=== PATIENT | female | born 1945 | race Caucasian/White ===

== ENCOUNTER 2020-10-04 13:52 | Outpatient (REF) | payer SELFPAY | END 2020-10-04 13:53 | disposition home or self-care (01) | LOC: HO.HAP 13:52 | PROVIDERS: PCP Nurse Practitioner Family; Referring Provider Nurse Practitioner Family; Visit Provider Nurse Practitioner Family | DX: Z46.1 Encounter for fitting and adjustment of hearing aid (principal) | CPT/HCPCS: V5267 ==

== ENCOUNTER 2020-10-24 13:51 | Outpatient (REF) | payer MEDICARE, SELFPAY | END 2020-10-24 13:52 | disposition home or self-care (01) | LOC: HO.LAB 13:51 | PROVIDERS: Visit Provider Internal Medicine | DX: Z20.828 Contact with and (suspected) exposure to other viral communicable diseases (principal) | CPT/HCPCS: C9803; U0003 ==

== ENCOUNTER 2020-11-25 13:11 | Outpatient (REF) | payer SELFPAY | END 2020-11-25 13:12 | disposition home or self-care (01) | LOC: HO.HAP 13:11 | PROVIDERS: Visit Provider Nurse Practitioner Family | DX: Z13.89 Encounter for screening for other disorder (principal) ==

== ENCOUNTER 2021-01-07 09:42 | Outpatient (REF) | payer SELFPAY | END 2021-01-07 09:43 | disposition home or self-care (01) | LOC: HO.HAP 09:42 | PROVIDERS: Visit Provider Nurse Practitioner Family | DX: Z46.1 Encounter for fitting and adjustment of hearing aid (principal) | CPT/HCPCS: V5014 ==

== ENCOUNTER 2021-02-07 10:42 | Outpatient (REF) | payer MEDICARE, SELFPAY ==
--- NOTE | 2021-02-07 15:12 | MHC.AU.AHA ---
Adult Audiological Evaluation Date of Visit: 02/07/21 Reason for Appointment: History of hearing loss. Patient arrives to determine if there has been a change in hearing. Previous Hearing Test Results: At this clinic on 10/03/2019- Overall Moderately-severe/severe sensorineural hearing loss bilaterally Medical History: Medical History: High Blood Pressure, Thyroid Disease Hearing Instrument History- Right Ear: Metallurgical Engineer: Phonak Model: [id number] V70-312 Serial Number: [id number] Battery Size: 312 Repair Warranty: 09/14/19-LAST EXTENTION ON ORIGINAL WARRANTY Dispensed By: [facility] Date of Fittin08/27/2015 Hearing Instrument History- Left Ear: Metallurgical Engineer: Phonak Model: [id number] V70-312 Serial Number: [id number] Battery Size: 312 Warranty: 09/14/19 LAST EXTENTION ORIGINAL WARRANTY Dispensed By: [facility] Date of Fittin08/27/2015 Otoscopy: Right Ear: Unremarkable Left Ear: Unremarkable Tympanometry: Tympanometry performed due to: To assess integrity of the middle ear system Right Ear: Normal Middle Ear System (Type A) Left Ear: Normal Middle Ear System (Type A) Hearing Evaluation: Transducer(s) Used: Insert Earphones Method: Conventional Audiometry Stimuli Used: Pure Tones Right Ear: Description of Hearing: Moderately-severe to severe sensorineural hearing loss Left Ear: Description of Hearing: Moderately-severe to severe sensorineural hearing loss Speech Recognition Threshold (SRT): Method Used: Recorded Lists Stimuli Used: Spondee Words Right Ear: 75 dBHL Left Ear: 70 dBHL Word Discrimination: Method: Recorded Lists Word Lists Used: NU-6 Right Ear: 84% at 95 dBHL Left Ear: 84% at 90 dBHL Most Comfortable Level (MCL): Right Ear: 95 dBHL Left Ear: 90 dBHL Comparison: Compared to most recent evaluation: Thresholds have decreased slightly at 2000 and 4000 Hz bilaterally Recommendations: Audiological re-evaluation in one year. Hearing aid maintenance performed today. Hearing aid(s) reprogrammed with updated test results. Diagnosis: Primary Diagnosis: H90.3 Bilateral Sensorineural Hearing Loss Services Performed: Comprehensive Audiological Evaluation (CPT 04629), Tympanometry (CPT 62952) Signature: Provider: Manoj Hendrickson, [facility]
== END 2021-02-07 10:43 | disposition home or self-care (01) ==
LOC: HO.SH 10:42
PROVIDERS: Visit Provider Nurse Practitioner Family
DX: H90.3 Sensorineural hearing loss, bilateral (principal)
CPT/HCPCS: 92557; 92567

== ENCOUNTER 2022-03-02 12:37 | Outpatient (REF) | payer MEDICARE, SELFPAY ==
--- NOTE | 2022-03-11 12:49 | MHC.AU.AHA ---
Adult Audiological Evaluation Date of Visit: 03/02/22 Reason for Appointment: Long-standing history of hearing loss. Patient arrives to determine if there has been a change in hearing. She feels she has not been hearing as well out of her right ear. Previous Hearing Test Results: At this clinic on 02/07/2021- Moderately-severe to severe sensorineural hearing loss bilaterally Medical History: Medical History: High Blood Pressure, Thyroid Disease Hearing Instrument History- Right Ear: Swedish Masseuse: Phonak Model: VIRTO V70-312 Serial Number: [id number] Battery Size: 312 Repair Warranty: 09/14/2019 Dispensed By: [facility] Date of Fittin08/27/2015 Hearing Instrument History- Left Ear: Swedish Masseuse: Phonak Model: VIRTO V70-312 Serial Number: [id number] Battery Size: 312 Warranty: 09/14/2019 Dispensed By: [facility] Date of Fittin08/27/2015 Otoscopy: Right Ear: Occluded by a thin layer of wax/skin- was removed without incident Left Ear: Unremarkable Hearing Evaluation: Transducer(s) Used: Insert Earphones Method: Conventional Audiometry Stimuli Used: Pure Tones Right Ear: Description of Hearing: Moderately-severe to severe sensorineural hearing loss Left Ear: Description of Hearing: Moderately-severe to severe sensorineural hearing loss Speech Recognition Threshold (SRT): Method Used: Recorded Lists Stimuli Used: Spondee Words Right Ear: 65 dBHL Left Ear: 65 dBHL Word Discrimination: Method: Recorded Lists Word Lists Used: W-22 Right Ear: 56% at 95 dBHL Left Ear: 76% at 90 dBHL Most Comfortable Level (MCL): Right Ear: 95 dBHL Left Ear: 90 dBHL Comparison: Compared to most recent evaluation: Slight decrease in thresholds bilaterally Recommendations: Audiological re-evaluation in one year. Hearing aid maintenance performed today. Hearing aid(s) reprogrammed with updated test results. Use of wax softening drops such as EarWaxMD or Debrox is recommended. Diagnosis: Primary Diagnosis: H90.3 Bilateral Sensorineural Hearing Loss Signature: Provider: Manoj Hendrickson, [facility]
== END 2022-03-02 12:38 | disposition home or self-care (01) ==
LOC: HO.SH 12:37
PROVIDERS: Visit Provider Nurse Practitioner Family
DX: Z01.118 Encounter for examination of ears and hearing with other abnormal findings (principal); H90.3 Sensorineural hearing loss, bilateral
CPT/HCPCS: 92557

== ENCOUNTER 2022-12-24 13:29 | Outpatient (REF) | payer MEDICARE, SELFPAY ==
--- NOTE | ~2022-12-24 | MM_ITS ---
EXAMINATION: BONE DENSITOMETRY CLINICAL INDICATION: Screening. COMPARISON: Previous BD dated 07/07/2016 and baseline BD dated 04/28/2007. TECHNIQUE: Using a [employer] DXA System (software version: 13.1) manufactured by [employer] dual-energy x-ray absorptiometry was performed of the lumbar spine and left hip. The images are of good technical quality. Summary results are attached. FINDINGS: AP SPINE L1-L4: Current: BMD 1.269 g/cm2, Z-score 1.9, T-score 0.7, normal, 6.5% increase from previous, 8.8% increase from baseline (<5% change is not significant). Prior: BMD 1.192 g/cm2. Baseline: BMD 1.166 g/cm2. LEFT FEMUR, NECK: Current: BMD 0.804 g/cm2, Z-score -0.1, T-score -1.7, osteopenia. Prior: BMD 0.929 g/cm2. Baseline: BMD 0.901 g/cm2. LEFT FEMUR, TOTAL: Current: BMD 0.864 g/cm2, Z-score 0.2, T-score -1.1, osteopenia, 5.9% decrease from previous, 7.2% decrease from baseline (<5% change is not significant). Prior: BMD 0.918 g/cm2. Baseline: BMD 0.931 g/cm2. IDENTIFIED RISK FACTORS: Menopause, height loss, history of fracture (adult), hysterectomy, bilateral oophorectomy, osteoporosis, recurrent falls, secondary osteoporosis. HISTORY OF FRACTURE: Spine. MEDICATIONS: Calcium, vitamin D. MM/XR DEXA axial skeleton IMPRESSION: 1. DIAGNOSIS: Osteopenia based on the lowest T-score value of -1.7 in the femoral neck applying World Health Organization criteria. 2. 10-YEAR FRACTURE RISK PREDICTION, FRAX: Major osteoporotic fracture (clinical spine, forearm, hip or shoulder) 18.3%. Hip fracture 3.8%. 3. Treatment Recommendations: NOF guidelines recommend consideration for treatment in postmenopausal women and men age 50 and older presenting with the following: -A hip or vertebral (clinical or morphometric) fracture. -T-score less than or equal to -2.5 at the femoral neck or spine after appropriate evaluation to exclude secondary causes. -Low bone mass at the hip or spine and a 10-year fracture probability by FRAX of greater than or equal to 3% for hip fracture or greater than or equal to 20% for major osteoporotic fracture based on the [place] adapted WHO algorithm. 4. Other Recommendations: All treatment decisions require clinical judgment and consideration of individual patient factors, including patient preferences, comorbidities, previous drug use, risk factors not captured in the FRAX model (e.g. frailty, falls, vitamin D deficiency, increased bone turnover, interval significant decline in bone density) and possible under or overestimation of fracture risk by FRAX. Additional medical evaluation for secondary cause of low bone mineral density may be appropriate. FUTURE SCAN RECOMMENDATION: People with diagnosed cases of osteoporosis or at high risk for fracture should have regular bone mineral density tests. For patients eligible for Medicare, routine testing is allowed once every 2 years. The testing frequency can be increased to one year for patients who have rapidly progressing disease, those who are receiving or discontinuing medical therapy to restore bone mass, or have additional risk factors.
== END 2022-12-24 13:30 | disposition home or self-care (01) ==
LOC: HO.MAMMO 13:29
PROVIDERS: Visit Provider Nurse Practitioner Family
DX: Z13.820 Encounter for screening for osteoporosis (principal); Z78.0 Asymptomatic menopausal state
CPT/HCPCS: 77080

== ENCOUNTER 2023-12-17 09:33 | Outpatient (REF) | payer MEDICARE, SELFPAY | END 2023-12-17 09:34 | disposition home or self-care (01) | LOC: HO.SH 09:33 | PROVIDERS: Visit Provider Nurse Practitioner Family | DX: Z01.118 Encounter for examination of ears and hearing with other abnormal findings (principal); H90.3 Sensorineural hearing loss, bilateral | CPT/HCPCS: 92552; 92556 ==